=== PATIENT | male | born 1995 | race African-American/Black ===

== ENCOUNTER 2019-08-01 15:46 | Emergency (ER) | payer OTHER ==
[~2019-08-01] VITALS: Ht 185.4 cm; Wt 149.2 kg
[~2019-08-01 15:46] MED LIST: AMOXICILLIN 50500 M1 PO; NOHOMEMEDICATIONS; PRILOSEC 20 MG20 MG PO; TRAMADOL 50 MG50 MG PO
[2019-08-01] MEDS ORDERED: IBU800 MG PO (15:49)
[2019-08-01] MEDS ORDERED: IBUPROFEN 600600 M1 PO (16:15)
[2019-08-01] MEDS ORDERED: VIBRAMYCIN 100100 M2 PO (16:15)
[2019-08-01 16:59] VITALS: BP 138/74
== END 2019-08-01 17:00 | disposition home or self-care (01) ==
LOC: ER 15:46
DX: L02.214 Cutaneous abscess of groin (principal)